=== PATIENT | male | born 2000 | race Caucasian/White ===

== ENCOUNTER 2018-10-28 13:37 | Emergency (ER) | payer MEDICAID ==
[~2018-10-28] VITALS: Ht 177.8 cm; Wt 108.0 kg
[2018-10-28] MEDS ORDERED: MAGNESIUM/ALUMINUM HYDROXIDE/SIMETHICONE 30ML UDC PO STA (20:01)
[2018-10-28] MEDS ORDERED: VISCOUS LIDOCAINE 2% 15 ML UDC PO STA (20:01)
[2018-10-28 21:07] LABS: CLARITY URINE CLEAR (CLEAR); COLOR URINE YELLOW (YELLOW); KETONES URINE NEGATIVE (NEGATIVE); LEUKOCYTE ESTERASE URINE NEGATIVE (NEGATIVE); NITRITE URINE NEGATIVE (NEGATIVE); OCCULT BLOOD URINE NEGATIVE (NEGATIVE); PROTEIN URINE NEGATIVE (NEGATIVE); SPECIFIC GRAVITY URINE 1.025 (1.005-1.030); UROBILINOGEN URINE 0.2 E.U./dL (0.2-1.0)
[2018-10-28] MEDS ORDERED: ACETAMINOPHEN 325MG TABLET PO ONE (21:15)
[2018-10-28 22:20] LABS: BASOPHILS % 0.4 % (0.0-2.0); EOSINOPHILS % 1.8 % (0.0-5.0); HEMATOCRIT. 48.2 % (42.0-52.0); HEMOGLOBIN. 16.7 g/dL (14.0-18.0); LYMPHOCYTES % 38.1 % (20.0-50.0); MEAN CORPUSCULAR HEMOGLOBIN 30.4 pg (28.0-32.0); MEAN CORPUSCULAR VOLUME 87.6 fL (80.0-94.0); MEAN PLATELET VOLUME 11.1 fl (7.4-10.4); MONOCYTES % 6.1 % (2.0-8.0); NEUTROPHILS % 53.6 % (40.0-76.0); PLATELET 170 x1000/uL (130-400); RED CELL DISTRIBUTION WIDTH 13.7 % (11.6-14.6)
[2018-10-28 22:26] LABS: CHLORIDE 107 mEq/L (98-107)
[2018-10-28 23:30] VITALS: BP 114/59
== END 2018-10-28 23:30 | disposition home or self-care (01) ==
LOC: ER 14:09
DX: K29.70 Gastritis, unspecified, without bleeding (principal); I10 Essential (primary) hypertension; E78.00 Pure hypercholesterolemia, unspecified; R51 Headache
CPT/HCPCS: 36415; 76700; 80053; 81003; 83690; 85025; 99284; Z7610

== ENCOUNTER 2019-02-16 12:51 | Emergency (ER) | payer MEDICAID ==
[~2019-02-16] VITALS: Ht 175.3 cm; Wt 107.8 kg
[2019-02-16] MEDS ORDERED: KETOROLAC 30MG/ML VIAL IV ONE (13:45)
[2019-02-16 14:30] LABS: CHLORIDE 106 mEq/L (98-107)
[2019-02-16 14:31] LABS: BASOPHILS % 0.5 % (0.0-2.0); EOSINOPHILS % 1.9 % (0.0-5.0); HEMATOCRIT. 48.1 % (42.0-52.0); HEMOGLOBIN. 16.7 g/dL (14.0-18.0); LYMPHOCYTES % 38.9 % (20.0-50.0); MEAN CORPUSCULAR HEMOGLOBIN 30.4 pg (28.0-32.0); MEAN CORPUSCULAR VOLUME 87.6 fL (80.0-94.0); MEAN PLATELET VOLUME 10.8 fl (7.4-10.4); MONOCYTES % 6.8 % (2.0-8.0); NEUTROPHILS % 51.9 % (40.0-76.0); PLATELET 168 x1000/uL (130-400); RED CELL DISTRIBUTION WIDTH 13.8 % (11.6-14.6)
[2019-02-16 14:48] LABS: CLARITY URINE CLEAR (CLEAR); COLOR URINE YELLOW (YELLOW); KETONES URINE NEGATIVE (NEGATIVE); LEUKOCYTE ESTERASE URINE NEGATIVE (NEGATIVE); NITRITE URINE NEGATIVE (NEGATIVE); OCCULT BLOOD URINE NEGATIVE (NEGATIVE); PROTEIN URINE NEGATIVE (NEGATIVE); SPECIFIC GRAVITY URINE 1.005 (1.005-1.030); UROBILINOGEN URINE 0.2 E.U./dL (0.2-1.0)
[2019-02-16 17:59] VITALS: BP 130/65
== END 2019-02-16 18:02 | disposition home or self-care (01) ==
LOC: ER 13:08
DX: R10.9 Unspecified abdominal pain (principal); R00.2 Palpitations; R42 Dizziness and giddiness; R50.9 Fever, unspecified
CPT/HCPCS: 36415; 80048; 81003; 85025; 96374; 99283; J1885